=== PATIENT | male | born 1990 | race American Indian/Alaskan Native ===

== ENCOUNTER 2019-01-22 18:38 | Emergency (ER) | payer SELFPAY ==
[2019-01-22] MEDS ORDERED: NORCO 5/325 PO STA (22:19)
[2019-01-22] MEDS ORDERED: AUGMENTIN 875 MG PO STA (22:21)
--- NOTE | 2019-01-22 22:45 | Emergency Department Report ---
ED ENT HPI - General Chief complaint: Dental/Oral Stated complaint: LFT SIDE GUM ABCESS/PAIN Time Seen by Provider: 01/22/19 21:27 Source: patient Mode of arrival: Ambulatory Limitations: No Limitations - History of Present Illness MD complaint: tooth pain -: Gradual Location: tooth # Severity: mild Quality: dull Consistency: constant Improves with: none Worsens with: none Associated Symptoms: gum swelling, toothache, rhinorrhea. denies: cough, tinnitus, hearing loss - Related Data Previous Rx's Medication Instructions Recorded Last Taken Type Amoxicillin [Amoxicillin TAB] 875 mg PO BID #20 tablet 01/22/19 Unknown Rx Chlorhexidine Mouthwash [Peridex] 15 ml MM BID #473 bottle 01/22/19 Unknown Rx Ketorolac [Toradol] 10 mg PO Q6H PRN #15 tablet 01/22/19 Unknown Rx ED Dental HPI - General Chief complaint: Dental/Oral Stated complaint: LFT SIDE GUM ABCESS/PAIN Time Seen by Provider: 01/22/19 21:27 Source: patient Mode of arrival: Ambulatory Limitations: No Limitations - Related Data Previous Rx's Medication Instructions Recorded Last Taken Type Amoxicillin [Amoxicillin TAB] 875 mg PO BID #20 tablet 01/22/19 Unknown Rx Chlorhexidine Mouthwash [Peridex] 15 ml MM BID #473 bottle 01/22/19 Unknown Rx Ketorolac [Toradol] 10 mg PO Q6H PRN #15 tablet 01/22/19 Unknown Rx ED Review of Systems ROS: Stated complaint: LFT SIDE GUM ABCESS/PAIN Other details as noted in HPI Comment: All other systems reviewed and negative ED Past Medical Hx - Past Medical History Previous Medical History?: Yes Additional medical history: hiv - Surgical History Past Surgical History?: Yes Additional Surgical History: lymph node removed from neck - Social History Smoking Status: Never Smoker Substance Use Type: Alcohol - Medications Home Medications: Home Medications Medication Instructions Recorded Confirmed Last Taken Type Amoxicillin [Amoxicillin TAB] 875 mg PO BID #20 tablet 01/22/19 Unknown Rx Chlorhexidine Mouthwash [Peridex] 15 ml MM BID #473 bottle 01/22/19 Unknown Rx Ketorolac [Toradol] 10 mg PO Q6H PRN #15 tablet 01/22/19 Unknown Rx ED Physical Exam - General Limitations: No Limitations General appearance: alert, in no apparent distress - Head Head exam: Present: atraumatic, normocephalic - Eye Eye exam: Present: normal appearance, PERRL, EOMI Pupils: Present: normal accommodation - ENT ENT exam: Present: normal exam, mucous membranes moist, other (severe dental erosions and gingival swelling with erythema as well. There appears to be early abscess formation adjacent to the left lower molar region in the area of tooth #2021. No lymphadenopathy. Airway is patent,Midline) - Neck Neck exam: Present: normal inspection - Respiratory Respiratory exam: Present: normal lung sounds bilaterally. Absent: respiratory distress - Cardiovascular Cardiovascular Exam: Present: regular rate, normal rhythm. Absent: systolic murmur, diastolic murmur, rubs, gallop - GI/Abdominal GI/Abdominal exam: Present: soft, normal bowel sounds - Rectal Rectal exam: Present: deferred - Extremities Exam Extremities exam: Present: normal inspection - Back Exam Back exam: Present: normal inspection - Neurological Exam Neurological exam: Present: alert, oriented X3 - Psychiatric Psychiatric exam: Present: normal affect, normal mood - Skin Skin exam: Present: warm, dry, intact, normal color. Absent: rash ED Course Vital Signs 01/22/19 18:51 Temperature 98.9 F Pulse Rate 62 Respiratory 16 Rate Blood Pressure 183/116 O2 Sat by Pulse 99 Oximetry ED Medical Decision Making - Medical Decision Making 28-year-old Citizen Of [place] male with very poor dentition. Total hygiene, several caries in the obvious oral infection with early abscess formation. Plan is to treat him cord with antiembolic 7. Follow-up with the been mass on the dental clinic as he has recently relocated to [place] and does not have a dentist in this region Critical care attestation.: If time is entered above; I have spent that time in minutes in the direct care of this critically ill patient, excluding procedure time. ED Disposition Clinical Impression: Infected dental caries, Gingiva disorder Disposition: DC- TO HOME OR SELFCARE Is pt being admited?: No Does the pt Need Aspirin: No Condition: Stable Instructions: Toothache (ED), Dental Caries (ED), Gingivitis (ED) Referrals: RODRI ARTHUR MD [Primary Care Provider] - 3-5 Days
[2019-01-22 23:49] VITALS: BP 169/91
== END 2019-01-22 23:48 | disposition home or self-care (01) ==
LOC: ED 18:38
DX: K02.9 Dental caries, unspecified (principal); K06.9 Disorder of gingiva and edentulous alveolar ridge, unspecified; Z21 Asymptomatic human immunodeficiency virus [HIV] infection status; Z98.890 Other specified postprocedural states; Z79.2 Long term (current) use of antibiotics; Z79.899 Other long term (current) drug therapy

== ENCOUNTER 2019-05-12 07:26 | Emergency (ER) | payer SELFPAY ==
[2019-05-12 07:30] VITALS: BP 170/103
--- NOTE | 2019-05-12 08:18 | Emergency Department Report ---
ED ENT HPI - General Chief complaint: Dental/Oral Stated complaint: GUM ABCESS Time Seen by Provider: 05/12/19 08:11 Source: patient Mode of arrival: Ambulatory Limitations: No Limitations - History of Present Illness Initial comments: 29-year-old -[place] male presents to the emergency room complaining of gum swelling and pain. Patient states that he has been going on for 2 days. Patient denies any discharge. Patient is aware that he has a bad tooth. Patient reports a past medical history of HIV and is compliant on his antiretrovirals medication. Patient denies any fever chills no nausea no vomiting no headache no sore throat no difficulty swallowing. MD complaint: tooth pain Onset/Timin -: days(s) Location: tooth # Severity scale (0 -10): 6 Quality: aching Consistency: constant Improves with: none Worsens with: none Associated Symptoms: gum swelling. denies: fever, cough, pain with swallowing, sore throat, tinnitus, hearing loss, discharge from ear, rhinorrhea - Related Data Previous Rx's Medication Instructions Recorded Last Taken Type Amoxicillin [Amoxicillin TAB] 875 mg PO BID #20 tablet 01/22/19 Unknown Rx Ketorolac [Toradol] 10 mg PO Q6H PRN #15 tablet 01/22/19 Unknown Rx Chlorhexidine Mouthwash [Peridex] 15 ml MM BID #473 bottle 05/12/19 Unknown Rx Clindamycin [Clindamycin CAP] 300 mg PO Q8H #30 cap 05/12/19 Unknown Rx Ibuprofen [Motrin 800 MG tab] 800 mg PO Q8HR PRN 10 Days #30 05/12/19 Unknown Rx tablet Allergies Allergy/AdvReac Type Severity Reaction Status Date / Time No Known Allergies Allergy Unverified 01/22/19 22:56 ED Dental HPI - General Chief complaint: Dental/Oral Stated complaint: GUM ABCESS Time Seen by Provider: 05/12/19 08:11 Source: patient Mode of arrival: Ambulatory Limitations: No Limitations - Related Data Previous Rx's Medication Instructions Recorded Last Taken Type Amoxicillin [Amoxicillin TAB] 875 mg PO BID #20 tablet 01/22/19 Unknown Rx Ketorolac [Toradol] 10 mg PO Q6H PRN #15 tablet 01/22/19 Unknown Rx Chlorhexidine Mouthwash [Peridex] 15 ml MM BID #473 bottle 11/07/19 Unknown Rx Clindamycin [Clindamycin CAP] 300 mg PO Q8H #30 cap 05/12/19 Unknown Rx Ibuprofen [Motrin 800 MG tab] 800 mg PO Q8HR PRN 10 Days #30 05/12/19 Unknown Rx tablet Allergies Allergy/AdvReac Type Severity Reaction Status Date / Time No Known Allergies Allergy Unverified 01/22/19 22:56 ED Review of Systems ROS: Stated complaint: GUM ABCESS Other details as noted in HPI Comment: All other systems reviewed and negative ED Past Medical Hx - Past Medical History Previous Medical History?: Yes Hx HIV: Yes Additional medical history: hiv - Surgical History Past Surgical History?: Yes Additional Surgical History: lymph node removed from neck - Social History Smoking Status: Never Smoker Substance Use Type: Marijuana - Medications Home Medications: Home Medications Medication Instructions Recorded Confirmed Last Taken Type Amoxicillin [Amoxicillin TAB] 875 mg PO BID #20 tablet 01/22/19 Unknown Rx Ketorolac [Toradol] 10 mg PO Q6H PRN #15 tablet 01/22/19 Unknown Rx Chlorhexidine Mouthwash [Peridex] 15 ml MM BID #473 bottle 05/12/19 Unknown Rx Clindamycin [Clindamycin CAP] 300 mg PO Q8H #30 cap 05/12/19 Unknown Rx Ibuprofen [Motrin 800 MG tab] 800 mg PO Q8HR PRN 10 Days #30 05/12/19 Unknown Rx tablet ED Physical Exam - General Limitations: No Limitations General appearance: alert, in no apparent distress - Head Head exam: Present: atraumatic, normocephalic - Eye Eye exam: Present: normal appearance - ENT ENT exam: Present: mucous membranes moist - Expanded ENT Exam Expanded Teeth exam: Present: dental caries, gingival enlargement Throat exam: Positive: normal inspection. Negative: tonsillar erythema, tonsillomegaly - Neck Neck exam: Present: normal inspection, full ROM - Neurological Exam Neurological exam: Present: alert, oriented X3 - Psychiatric Psychiatric exam: Present: normal affect, normal mood - Skin Skin exam: Present: warm, dry, intact, normal color. Absent: rash ED Course Vital Signs 05/12/19 07:29 Temperature 97 F L Pulse Rate 56 L Respiratory 16 Rate Blood Pressure 170/103 [Right] O2 Sat by Pulse 98 Oximetry ED Medical Decision Making - Medical Decision Making 29-year-old -[place] male presents to the emergency room complaining of gum swelling and pain. Patient states that he has been going on for 2 days. Patient denies any discharge. Patient is aware that he has a bad tooth. Patient reports a past medical history of HIV and is compliant on his antiretrovirals medication. Patient denies any fever chills no nausea no vomiting no headache no sore throat no difficulty swallowing. Discussed the patient I will place him on clindamycin 300 mg 3 times a day for 10 days and ibuprofen 800 mg by mouth 3 times a day when necessary. Critical care attestation.: If time is entered above; I have spent that time in minutes in the direct care of this critically ill patient, excluding procedure time. ED Disposition Clinical Impression: Dental abscess Disposition: TO HOME OR SELFCARE Is pt being admited?: No Does the pt Need Aspirin: No Condition: Stable Instructions: Dental Abscess (ED) Prescriptions: Clindamycin [Clindamycin CAP] 300 mg PO Q8H #30 cap Ibuprofen [Motrin 800 MG tab] 800 mg PO Q8HR PRN 10 Days #30 tablet PRN Reason: Pain , Severe (7-10) Chlorhexidine Mouthwash [Peridex] 15 ml MM BID #473 bottle Referrals: [facility] [Outside] - 3-5 Days [facility] [Outside] - 3-5 Days Forms: Work/School Release Form(ED)
== END 2019-05-12 08:31 | disposition home or self-care (01) ==
LOC: ED 07:26
DX: K04.7 Periapical abscess without sinus (principal); F12.10 Cannabis abuse, uncomplicated; Z79.899 Other long term (current) drug therapy; Z98.890 Other specified postprocedural states

== ENCOUNTER 2019-05-27 03:27 | Emergency (ER) | payer SELFPAY ==
[2019-05-27 03:34] VITALS: BP 156/103
[2019-05-27] MEDS ORDERED: traMADol 50 MG TAB PO ONE (04:38)
--- NOTE | 2019-05-27 05:19 | Emergency Department Report ---
ED ENT HPI - General Chief complaint: Dental/Oral Stated complaint: GUM ABSCESS Time Seen by Provider: 05/27/19 04:38 Source: patient Mode of arrival: Ambulatory Limitations: No Limitations - History of Present Illness Initial comments: Pt is a 29 y/o aam who presents for dental pain x 1 month 5/10 aching , pt states he has been unable to see dentist. there is no fever or chills, no throat or ear pain. MD complaint: tooth pain Onset/Timin -: week(s), unknown (chronic problem ) Location: tooth # (20) Severity: moderate Severity scale (0 -10): 5 Quality: aching Consistency: constant Improves with: none Worsens with: eating, other (hot and cold stimuli ) Context- Dental: history of dental caries, poor dental care Associated Symptoms: toothache. denies: fever, gum swelling, pain with swallowing, sore throat, discharge from ear - Related Data Previous Rx's Medication Instructions Recorded Last Taken Type Amoxicillin [Amoxicillin TAB] 875 mg PO BID #20 tablet 01/22/19 Unknown Rx Ketorolac [Toradol] 10 mg PO Q6H PRN #15 tablet 01/22/19 Unknown Rx Chlorhexidine Mouthwash [Peridex] 15 ml MM BID #473 bottle 05/12/19 Unknown Rx Clindamycin [Clindamycin CAP] 300 mg PO Q8H #30 cap 05/12/19 Unknown Rx Ibuprofen [Motrin 800 MG tab] 800 mg PO Q8HR PRN 10 Days #30 05/12/19 Unknown Rx tablet Amoxicillin [Trimox CAP] 500 mg PO Q8H 10 Days #30 capsule 05/27/19 Unknown Rx Chlorhexidine Mouthwash [Peridex] 15 ml MM BID #1 bottle 05/27/19 Unknown Rx traMADoL [Ultram] 50 mg PO Q6HR PRN #12 tablet 05/27/19 Unknown Rx Allergies Allergy/AdvReac Type Severity Reaction Status Date / Time No Known Allergies Allergy Unverified 01/22/19 22:56 ED Dental HPI - General Chief complaint: Dental/Oral Stated complaint: GUM ABSCESS Time Seen by Provider: 05/27/19 04:38 Source: patient Mode of arrival: Ambulatory Limitations: No Limitations - Related Data Previous Rx's Medication Instructions Recorded Last Taken Type Amoxicillin [Amoxicillin TAB] 875 mg PO BID #20 tablet 01/22/19 Unknown Rx Ketorolac [Toradol] 10 mg PO Q6H PRN #15 tablet 01/22/19 Unknown Rx Chlorhexidine Mouthwash [Peridex] 15 ml MM BID #473 bottle 05/12/19 Unknown Rx Clindamycin [Clindamycin CAP] 300 mg PO Q8H #30 cap 05/12/19 Unknown Rx Ibuprofen [Motrin 800 MG tab] 800 mg PO Q8HR PRN 10 Days #30 05/12/19 Unknown Rx tablet Amoxicillin [Trimox CAP] 500 mg PO Q8H 10 Days #30 capsule 05/27/19 Unknown Rx Chlorhexidine Mouthwash [Peridex] 15 ml MM BID #1 bottle 05/27/19 Unknown Rx traMADoL [Ultram] 50 mg PO Q6HR PRN #12 tablet 05/27/19 Unknown Rx Allergies Allergy/AdvReac Type Severity Reaction Status Date / Time No Known Allergies Allergy Unverified 01/22/19 22:56 ED Review of Systems ROS: Stated complaint: GUM ABSCESS Other details as noted in HPI Constitutional: denies: chills, fever Eyes: denies: eye pain, eye discharge, vision change ENT: dental pain. denies: ear pain, throat pain, congestion Respiratory: denies: cough, shortness of breath, wheezing Cardiovascular: denies: chest pain, palpitations Endocrine: no symptoms reported Gastrointestinal: denies: abdominal pain, nausea, diarrhea Genitourinary: denies: urgency, dysuria Musculoskeletal: denies: back pain, joint swelling, arthralgia Skin: denies: rash, lesions Neurological: denies: headache, weakness, paresthesias Psychiatric: denies: anxiety, depression Hematological/Lymphatic: denies: easy bleeding, easy bruising ED Past Medical Hx - Past Medical History Previous Medical History?: Yes Hx HIV: Yes Additional medical history: hiv - Surgical History Past Surgical History?: Yes Additional Surgical History: lymph node removed from neck - Social History Smoking Status: Former Smoker Substance Use Type: Alcohol, Marijuana - Medications Home Medications: Home Medications Medication Instructions Recorded Confirmed Last Taken Type Amoxicillin [Amoxicillin TAB] 875 mg PO BID #20 tablet 01/22/19 Unknown Rx Ketorolac [Toradol] 10 mg PO Q6H PRN #15 tablet 01/22/19 Unknown Rx Chlorhexidine Mouthwash [Peridex] 15 ml MM BID #473 bottle 05/12/19 Unknown Rx Clindamycin [Clindamycin CAP] 300 mg PO Q8H #30 cap 05/12/19 Unknown Rx Ibuprofen [Motrin 800 MG tab] 800 mg PO Q8HR PRN 10 Days #30 05/12/19 Unknown Rx tablet Amoxicillin [Trimox CAP] 500 mg PO Q8H 10 Days #30 capsule 05/27/19 Unknown Rx Chlorhexidine Mouthwash [Peridex] 15 ml MM BID #1 bottle 05/27/19 Unknown Rx traMADoL [Ultram] 50 mg PO Q6HR PRN #12 tablet 05/27/19 Unknown Rx ED Physical Exam - General Limitations: No Limitations General appearance: alert, in no apparent distress - Head Head exam: Present: atraumatic, normocephalic - Eye Eye exam: Present: normal appearance, PERRL, EOMI Pupils: Present: normal accommodation - ENT ENT exam: Present: mucous membranes moist - Neck Neck exam: Present: normal inspection, full ROM. Absent: tenderness - Respiratory Respiratory exam: Present: normal lung sounds bilaterally. Absent: respiratory distress, wheezes, stridor, chest wall tenderness - Cardiovascular Cardiovascular Exam: Present: regular rate, normal rhythm, normal heart sounds. Absent: systolic murmur, diastolic murmur, rubs, gallop - GI/Abdominal GI/Abdominal exam: Present: soft, normal bowel sounds - Rectal Rectal exam: Present: deferred - Extremities Exam Extremities exam: Present: normal inspection, full ROM. Absent: tenderness - Back Exam Back exam: Present: normal inspection, full ROM. Absent: tenderness - Neurological Exam Neurological exam: Present: alert, oriented X3, CN II-XII intact, normal gait - Psychiatric Psychiatric exam: Present: normal affect, normal mood - Skin Skin exam: Present: warm, dry, intact, normal color. Absent: rash ED Course Vital Signs 05/27/19 03:31 Temperature 97.9 F Pulse Rate 63 Respiratory 20 Rate Blood Pressure 156/103 O2 Sat by Pulse 100 Oximetry ED Medical Decision Making - Medical Decision Making this is straight forward infected dental carries, plan: amoxicillin, ultram, peridex , follow up with dentist, pt verbalized agreement and understanding of discharge plan. Critical care attestation.: If time is entered above; I have spent that time in minutes in the direct care of this critically ill patient, excluding procedure time. ED Disposition Clinical Impression: Infected dental carries Disposition: DC-01 TO HOME OR SELFCARE Is pt being admited?: No Does the pt Need Aspirin: No Condition: Stable Instructions: Dental Caries (ED), Toothache (ED) Prescriptions: Chlorhexidine Mouthwash [Peridex] 15 ml MM BID #1 bottle Amoxicillin [Trimox CAP] 500 mg PO Q8H 10 Days #30 capsule traMADoL [Ultram] 50 mg PO Q6HR PRN #12 tablet PRN Reason: Pain Referrals: [facility] [Outside] - 3-5 Days Forms: Work/School Release Form(ED) Time of Disposition: 05:46
== END 2019-05-27 06:05 | disposition home or self-care (01) ==
LOC: ED 03:27
DX: K02.9 Dental caries, unspecified (principal); F12.10 Cannabis abuse, uncomplicated; Z79.1 Long term (current) use of non-steroidal anti-inflammatories (NSAID); Z79.899 Other long term (current) drug therapy; Z21 Asymptomatic human immunodeficiency virus [HIV] infection status; Z87.891 Personal history of nicotine dependence
CPT/HCPCS: 99282

== ENCOUNTER 2019-08-11 07:12 | Emergency (ER) | payer SELFPAY ==
[2019-08-11 07:54] VITALS: BP 158/100
--- NOTE | 2019-08-11 08:35 | Emergency Department Report ---
Chief Complaint: Dental/Oral Stated Complaint: LEFT GUM ISSUE Time Seen by Provider: 08/11/19 07:58 - HPI History of Present Illness: This is a 29-year-old male with no prior medical history who presents to ED complaining left lower gum pain for the past week. Patient stated that he called the dentist and was told he could not get an appointment to be seen earlier. Patient denies fever/chills/nausea vomiting. Patient denies facial swelling, gum bleeding or trauma to the face or dental. Patient is able to swallow drink and eat without any problems. - ROS Review of Systems: As noted in HPI - Exam Vital Signs: Vital Signs 08/11/19 08/11/19 07:31 07:52 Temperature 97.7 F 97.7 F Pulse Rate 70 70 Respiratory 20 16 Rate Blood Pressure 158/100 Blood Pressure 158/102 [Left] O2 Sat by Pulse 99 100 Oximetry Physical Exam: HEENT: Head is nontraumatic, ear normal to examination, PEERLA, nose is atraumatic. Airways are clear, no dental gingival swelling or bleeding noted. tooth #20 is essentially, there is some redness of the gum otherwise no swelling, MSE screening note: Focused history and physical exam performed. Due to findings the following was ordered: ED Medical Decision Making - Medical Decision Making 39-year-old male presents with dental pain secondary to inflammation/infection. Discussed with the patient of this is not a medical emergency and he needs to follow-up with a dentist Medicines are normal patient is in no acute distress. Discussed 7 day course of antibiotic in resources for dentist given. Patient understands instructions and will follow-up. ED Disposition for MSE Clinical Impression: Pain, dental Disposition: DC-01 TO HOME OR SELFCARE Is pt being admited?: No Does the pt Need Aspirin: No Condition: Stable Instructions: Toothache (ED) Additional Instructions: Follow up with dentist. take meds as prescribed Prescriptions: Clindamycin [Clindamycin CAP] 300 mg PO Q8H #30 cap Referrals: [facility] [Outside] - 3-5 Days [facility] [Outside] - 3-5 Days [facility] [place] [Outside] - 3-5 Days [facility] [Outside] - 3-[address] [facility] [Outside] - 3-5 Days Forms: Work/School Release Form(ED) Time of Disposition: 08:40
== END 2019-08-11 08:56 | disposition home or self-care (01) ==
LOC: ED 07:12
DX: K08.89 Other specified disorders of teeth and supporting structures (principal)

== ENCOUNTER 2019-09-28 14:47 | Emergency (ER) | payer SELFPAY ==
[2019-09-28 16:46] VITALS: BP 149/96
--- NOTE | 2019-09-28 16:49 | Emergency Department Report ---
ED ENT HPI - General Chief complaint: Dental/Oral Stated complaint: LFT SIDE GUM ABCESS/PAIN Time Seen by Provider: 09/28/19 16:44 Source: patient Mode of arrival: Ambulatory Limitations: No Limitations - History of Present Illness Initial comments: This is a 29-year-old male nontoxic well in appearance with no signs of distress presents to the ED with complaint of chronic toothache. Patient was seen here on several occasions for same condition but denies any follow-up. Patient denies any facial swelling. Denies following up with a dentist. Denies any fever, chills, headache, nausea, vomiting, chest pain or SOB. Denies any other complaints. Denies any allergies. MD complaint: tooth pain -: year(s) Location: tooth # 1 - pain here Severity: mild Severity scale (0 -10): 8 Quality: aching Consistency: intermittent Improves with: none Worsens with: none Context- Dental: history of dental caries, poor dental care Associated Symptoms: gum swelling, toothache. denies: fever, cough, pain with swallowing, sore throat, tinnitus, hearing loss, discharge from ear, rhinorrhea - Related Data Previous Rx's Medication Instructions Recorded Last Taken Type Amoxicillin [Amoxicillin TAB] 875 mg PO BID #20 tablet 01/22/19 Unknown Rx Ketorolac [Toradol] 10 mg PO Q6H PRN #15 tablet 01/22/19 Unknown Rx Chlorhexidine Mouthwash [Peridex] 15 ml MM BID #473 bottle 05/12/19 Unknown Rx Ibuprofen [Motrin 800 MG tab] 800 mg PO Q8HR PRN 10 Days #30 05/12/19 Unknown Rx tablet Amoxicillin [Trimox CAP] 500 mg PO Q8H 10 Days #30 capsule 05/27/19 Unknown Rx Chlorhexidine Mouthwash [Peridex] 15 ml MM BID #1 bottle 05/27/19 Unknown Rx traMADoL [Ultram] 50 mg PO Q6HR PRN #12 tablet 05/27/19 Unknown Rx Clindamycin [Clindamycin CAP] 300 mg PO Q8H #30 cap 08/11/19 Unknown Rx Allergies Allergy/AdvReac Type Severity Reaction Status Date / Time No Known Allergies Allergy Verified 08/11/19 07:27 ED Dental HPI - General Chief complaint: Dental/Oral Stated complaint: LFT SIDE GUM ABCESS/PAIN Time Seen by Provider: 09/28/19 16:44 Source: patient Mode of arrival: Ambulatory Limitations: No Limitations - Related Data Previous Rx's Medication Instructions Recorded Last Taken Type Amoxicillin [Amoxicillin TAB] 875 mg PO BID #20 tablet 01/22/19 Unknown Rx Ketorolac [Toradol] 10 mg PO Q6H PRN #15 tablet 01/22/19 Unknown Rx Chlorhexidine Mouthwash [Peridex] 15 ml MM BID #473 bottle 05/12/19 Unknown Rx Ibuprofen [Motrin 800 MG tab] 800 mg PO Q8HR PRN 10 Days #30 05/12/19 Unknown Rx tablet Amoxicillin [Trimox CAP] 500 mg PO Q8H 10 Days #30 capsule 05/27/19 Unknown Rx Chlorhexidine Mouthwash [Peridex] 15 ml MM BID #1 bottle 05/27/19 Unknown Rx traMADoL [Ultram] 50 mg PO Q6HR PRN #12 tablet 05/27/19 Unknown Rx Clindamycin [Clindamycin CAP] 300 mg PO Q8H #30 cap 08/11/19 Unknown Rx Allergies Allergy/AdvReac Type Severity Reaction Status Date / Time No Known Allergies Allergy Verified 08/11/19 07:27 ED Review of Systems ROS: Stated complaint: LFT SIDE GUM ABCESS/PAIN Other details as noted in HPI Constitutional: denies: chills, fever Eyes: denies: eye pain, eye discharge, vision change ENT: dental pain. denies: ear pain, throat pain Respiratory: denies: cough, shortness of breath, wheezing Cardiovascular: denies: chest pain, palpitations Endocrine: no symptoms reported Gastrointestinal: denies: abdominal pain, nausea, diarrhea Genitourinary: denies: urgency, dysuria Musculoskeletal: denies: back pain, joint swelling, arthralgia Skin: denies: rash, lesions Neurological: denies: headache, weakness, paresthesias Psychiatric: denies: anxiety, depression Hematological/Lymphatic: denies: easy bleeding, easy bruising ED Past Medical Hx - Past Medical History Hx HIV: Yes Additional medical history: hiv - Surgical History Additional Surgical History: lymph node removed from neck - Social History Smoking Status: Current Every Day Smoker Substance Use Type: None - Medications Home Medications: Home Medications Medication Instructions Recorded Confirmed Last Taken Type Amoxicillin [Amoxicillin TAB] 875 mg PO BID #20 tablet 01/22/19 Unknown Rx Ketorolac [Toradol] 10 mg PO Q6H PRN #15 tablet 01/22/19 Unknown Rx Chlorhexidine Mouthwash [Peridex] 15 ml MM BID #473 bottle 05/12/19 Unknown Rx Ibuprofen [Motrin 800 MG tab] 800 mg PO Q8HR PRN 10 Days #30 05/12/19 Unknown Rx tablet Amoxicillin [Trimox CAP] 500 mg PO Q8H 10 Days #30 capsule 05/27/19 Unknown Rx Chlorhexidine Mouthwash [Peridex] 15 ml MM BID #1 bottle 05/27/19 Unknown Rx traMADoL [Ultram] 50 mg PO Q6HR PRN #12 tablet 05/27/19 Unknown Rx Clindamycin [Clindamycin CAP] 300 mg PO Q8H #30 cap 08/11/19 Unknown Rx ED Physical Exam - General Limitations: No Limitations General appearance: alert, in no apparent distress - Head Head exam: Present: atraumatic, normocephalic - Expanded ENT Exam Expanded Ear exam: Present: normal external inspection Mouth exam: Present: normal external inspection, tongue normal. Absent: drooling, trismus, muffled voice Teeth exam: Present: dental caries, fractured tooth #, dental tenderness #, other (uvula midline. no abscess or swelling). Absent: gingival enlargement Throat exam: Positive: normal inspection. Negative: tonsillar erythema, tonsillomegaly, tonsillar exudate, R peritonsillar mass, L peritonsillar mass - Neck Neck exam: Present: normal inspection, full ROM. Absent: tenderness, meningismus, lymphadenopathy ED Course - Reevaluation(s) Reevaluation #1: 09/28/19 16:48 Patient is speaking in full sentences with no signs of distress noted. ED Medical Decision Making - Medical Decision Making Patient was instructed to Follow-up with a dentist doctor in 3-5 days or if sym ptoms worsen and continue return to emergency room as soon as possible. At time of discharge, the patient does not seem toxic or ill in appearance. No acute signs of distress noted. Patient agrees to discharge treatment plan of care. No further questions noted by the patient. Critical care attestation.: If time is entered above; I have spent that time in minutes in the direct care of this critically ill patient, excluding procedure time. ED Disposition Clinical Impression: Toothache Disposition: Z- MED SCREENING EXAM-LEFT Is pt being admited?: No Does the pt Need Aspirin: No Condition: Stable Instructions: Toothache (ED) Additional Instructions: Follow-up with a dentist doctor in 3-5 days or if symptoms worsen and continue return to emergency room as soon as possible. Referrals: [facility] [Referring] - 3-5 Days ROBINSON BECK MD [Staff Physician] - 3-5 Days [facility] [Outside] - 3-5 Days
== END 2019-09-28 17:43 | disposition left against medical advice (07) ==
LOC: ED 14:47
DX: K08.89 Other specified disorders of teeth and supporting structures (principal); F17.200 Nicotine dependence, unspecified, uncomplicated; Z21 Asymptomatic human immunodeficiency virus [HIV] infection status; Z79.899 Other long term (current) drug therapy; Z98.890 Other specified postprocedural states
CPT/HCPCS: 99281

== ENCOUNTER 2021-01-01 17:27 | Emergency (ER) | payer SELFPAY ==
[2021-01-01 18:31] VITALS: BP 150/85
--- NOTE | 2021-01-01 20:19 | Emergency Department Report ---
ED Back Pain/Injury HPI - General Chief Complaint: Back Pain/Injury Stated Complaint: BACK PAINS Time Seen by Provider: 01/01/21 19:55 Source: patient Limitations: No Limitations - History of Present Illness Initial Comments: Patient is a 22-year-old male presents emergency room with complaints of lower back pain that began around 10 AM this morning. 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 He states he was helping to move a 200 pound ping- pong table and states he felt like his back locked up on him. He denies any fall or specific injury. He denies any numbness, weakness, bowel or bladder incontinence. He is ambulatory without difficulty. No past medical history. No allergies to medications. - Related Data Previous Rx's Medication Instructions Recorded Last Taken Type Amoxicillin [Amoxicillin TAB] 875 mg PO BID #20 tablet 01/22/19 Unknown Rx Ketorolac [Toradol] 10 mg PO Q6H PRN #15 tablet 01/22/19 Unknown Rx Chlorhexidine Mouthwash [Peridex] 15 ml MM BID #473 bottle 05/12/19 Unknown Rx Ibuprofen [Motrin 800 MG tab] 800 mg PO Q8HR PRN 10 Days #30 05/12/19 Unknown Rx tablet Amoxicillin [Trimox CAP] 500 mg PO Q8H 10 Days #30 capsule 05/27/19 Unknown Rx Chlorhexidine Mouthwash [Peridex] 15 ml MM BID #1 bottle 05/27/19 Unknown Rx traMADoL [Ultram] 50 mg PO Q6HR PRN #12 tablet 05/27/19 Unknown Rx Clindamycin [Clindamycin CAP] 300 mg PO Q8H #30 cap 08/11/19 Unknown Rx Menthol/Camphor [[place] 1 applicatio TP BID #18 oint...g. 01/01/21 Unknown Rx Ointment] Naproxen [EC-Naprosyn] 375 mg PO BID PRN #20 tablet. 01/01/21 Unknown Rx methOCARBAMOL [Robaxin TAB] 500 mg PO BID PRN #14 tab 01/01/21 Unknown Rx Allergies Allergy/AdvReac Type Severity Reaction Status Date / Time No Known Allergies Allergy Verified 08/11/19 07:27 ED Review of Systems ROS: Stated complaint: BACK PAINS Other details as noted in HPI Comment: All other systems reviewed and negative ED Past Medical Hx - Past Medical History Previous Medical History?: Yes Hx HIV: Yes Additional medical history: hiv - Surgical History Past Surgical History?: Yes Additional Surgical History: lymph node removed from neck - Social History Smoking Status: Current Every Day Smoker Substance Use Type: None - Medications Home Medications: Home Medications Medication Instructions Recorded Confirmed Last Taken Type Amoxicillin [Amoxicillin TAB] 875 mg PO BID #20 tablet 01/22/19 Unknown Rx Ketorolac [Toradol] 10 mg PO Q6H PRN #15 tablet 01/22/19 Unknown Rx Chlorhexidine Mouthwash [Peridex] 15 ml MM BID #473 bottle 05/12/19 Unknown Rx Ibuprofen [Motrin 800 MG tab] 800 mg PO Q8HR PRN 10 Days #30 05/12/19 Unknown Rx tablet Amoxicillin [Trimox CAP] 500 mg PO Q8H 10 Days #30 capsule 05/27/19 Unknown Rx Chlorhexidine Mouthwash [Peridex] 15 ml MM BID #1 bottle 05/27/19 Unknown Rx traMADoL [Ultram] 50 mg PO Q6HR PRN #12 tablet 05/27/19 Unknown Rx Clindamycin [Clindamycin CAP] 300 mg PO Q8H #30 cap 08/11/19 Unknown Rx Menthol/Camphor [[place] 1 applicatio TP BID #18 oint...g. 01/01/21 Unknown Rx Ointment] Naproxen [EC-Naprosyn] 375 mg PO BID PRN #20 tablet.dr 01/01/21 Unknown Rx methOCARBAMOL [Robaxin TAB] 500 mg PO BID PRN #14 tab 01/01/21 Unknown Rx ED Physical Exam - General Limitations: No Limitations General appearance: alert, in no apparent distress - Head Head exam: Present: atraumatic, normocephalic - Eye Eye exam: Present: normal appearance - ENT ENT exam: Present: mucous membranes moist - Neck Neck exam: Present: normal inspection, full ROM. Absent: tenderness, meningismus - Respiratory Respiratory exam: Present: normal lung sounds bilaterally. Absent: respiratory distress, wheezes, rales, rhonchi, stridor, chest wall tenderness, accessory muscle use, decreased breath sounds, prolonged expiratory - Cardiovascular Cardiovascular Exam: Present: regular rate, normal rhythm, normal heart sounds. Absent: systolic murmur, diastolic murmur, rubs, gallop - Back Exam Back exam: Present: normal inspection, full ROM, paraspinal tenderness (bilateral lumbar paraspinal ttp, no midline C-spine, T-spine or L-spine ttp, no step offs, no deformities). Absent: vertebral tenderness - Neurological Exam Neurological exam: Present: alert, oriented X3, CN II-XII intact, normal gait. Absent: motor sensory deficit - Psychiatric Psychiatric exam: Present: normal affect, normal mood - Skin Skin exam: Present: warm, dry, intact ED Course Vital Signs 01/01/21 01/01/21 18:30 21:45 Temperature 98.3 F Pulse Rate 58 L 78 Respiratory 20 18 Rate Blood Pressure 150/85 O2 Sat by Pulse 100 98 Oximetry ED Medical Decision Making - Medical Decision Making Patient is a 22-year-old male presents emergency room with complaints of lower back pain that began around 10 AM this morning. 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 He states he was helping to move a 200 pound ping- pong table and states he felt like his back locked up on him. He denies any fall or specific injury. He denies any numbness, weakness, bowel or bladder incontinence. He is ambulatory without difficulty. No past medical history. No allergies to medications. Vitals are stable. On exam:bilateral lumbar paraspinal ttp, no midline C-spine, T-spine or L-spine ttp, no step offs, no deformities, no focal neuro deficits, ambulatory without difficulty. Examination appears most consistent with lumbar strain. Patient has no red flag warning signs of back pain, no trauma, no unexplained weight loss, no neuro deficits, age is not greater than 50, no fever, no IV drug use, no steroid use, no history of cancer. Patient given prescription for medications. Advised patient Please use medication as prescribed as needed. May use ice pack, heating pad, rest, and epsom salt bath. Do not use Boody balm ointment while using heat or ice. Do not drive or operate machinery when taking muscle relaxer Robaxin. Return to emergency room for any new or worsening symptoms. Critical care attestation.: If time is entered above; I have spent that time in minutes in the direct care of this critically ill patient, excluding procedure time. ED Disposition Clinical Impression: Low back pain Disposition: - TO HOME OR SELFCARE Is pt being admited?: No Does the pt Need Aspirin: No Condition: Stable Instructions: Lumbar Strain Additional Instructions: Please use medication as prescribed as needed. May use ice pack, heating pad, rest, and epsom salt bath. Do not use Boody balm ointment while using heat or ice. Do not drive or operate machinery when taking muscle relaxer Robaxin. Return to emergency room for any new or worsening symptoms. Prescriptions: Naproxen [EC-Naprosyn] 375 mg PO BID PRN #20 tablet. PRN Reason: pain methOCARBAMOL [Robaxin TAB] 500 mg PO BID PRN #14 tab PRN Reason: muscle spasm/pain Menthol/Camphor [Boody Barnard Ointment] 1 applicatio TP BID #18 oint...g. Referrals: [facility] [Provider Group] - 2-3 Days ROBINSON BECK MD [Staff Physician] - 2-3 Days Forms: Work/School Release Form(ED) Time of Disposition: 20:17 Print Language: ESTONIAN
== END 2021-01-01 20:45 | disposition home or self-care (01) ==
LOC: ED 17:27
DX: M54.5 Low back pain (principal); F17.200 Nicotine dependence, unspecified, uncomplicated; Z98.890 Other specified postprocedural states; Z79.899 Other long term (current) drug therapy
CPT/HCPCS: 99281

== ENCOUNTER 2021-09-10 22:03 | Emergency (ER) | payer SELFPAY ==
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
[2021-09-11 03:01] VITALS: BP 147/87
== END 2021-09-11 03:03 | disposition home or self-care (01) ==
LOC: ED 22:03
DX: M79.18 Myalgia, other site (principal); V89.2XXA Person injured in unspecified motor-vehicle accident, traffic, initial encounter; Y93.89 Activity, other specified; Y92.89 Other specified places as the place of occurrence of the external cause; Y99.8 Other external cause status
CPT/HCPCS: 99282